=== PATIENT | female | born 1965 | race Caucasian/White ===

== ENCOUNTER 2022-10-03 12:20 | Emergency (ER) | payer SELFPAY ==
[2022-10-03] MEDS ORDERED: Morphine 4 MG/ML VIAL ONE (13:03)
[2022-10-03] MEDS ORDERED: Ketorolac Tromethamine 30 MG/ML VIAL ONE (13:04)
[2022-10-03] MEDS ORDERED: Acetaminophen 500 MG TAB ONE (13:04)
[2022-10-03] MEDS ORDERED: Ondansetron PF 4 MG/2 ML Vial ONE (15:00)
== END 2022-10-03 16:31 | disposition home or self-care (01) ==
LOC: ERS 12:20
DX: S39.012A Strain of muscle, fascia and tendon of lower back, initial encounter (principal); F17.220 Nicotine dependence, chewing tobacco, uncomplicated
CPT/HCPCS: 72148; 96374; 96375; J1885; J2270; J2405

== ENCOUNTER 2023-10-29 19:41 | Emergency (ER) | payer BC, OTHER ==
[2023-10-29] MEDS ORDERED: Ondansetron PF 4 MG/2 ML Vial ONE (20:25)
[2023-10-29] MEDS ORDERED: Ketorolac Tromethamine 30 MG (1 mL) VIAL ONE (20:25)
[2023-10-29] MEDS ORDERED: Morphine 4 MG/ML VIAL ONE (20:25)
== END 2023-10-29 23:10 | disposition home or self-care (01) ==
LOC: ERS 19:41
DX: S43.401A Unspecified sprain of right shoulder joint, initial encounter (principal); F17.220 Nicotine dependence, chewing tobacco, uncomplicated; Z55.0 Illiteracy and low-level literacy; W19.XXXA Unspecified fall, initial encounter
CPT/HCPCS: 72131; 72192; 96374; 96375; J1885; J2272; J2405